=== PATIENT | female | born 1970 | race Two or more races ===

== ENCOUNTER → 2020-12-31 | Outpatient (CLI) | payer MEDICAID ==
[~2020-12-31] VITALS: Ht 144.8 cm; Wt 68.0 kg
[~2020-12-31] MED LIST: ADENOSINE 57 MG in GIVE UN-DILUTED 0 ML IV ONE; ADENOSINE 90 MG/30 ML INJ IV ONE
== END | disposition home or self-care (01) ==
LOC: Rad HDHVI 12:48
PROVIDERS: ATTEND Internal Medicine Cardiovascular Disease
DX: I10 Essential (primary) hypertension (principal); E78.5 Hyperlipidemia, unspecified; E11.9 Type 2 diabetes mellitus without complications; R07.9 Chest pain, unspecified; R06.02 Shortness of breath
CPT/HCPCS: 78452; 93005; 96374; 96375; A9500; J0153